=== PATIENT | male | born 1990 | race Caucasian/White ===

== ENCOUNTER → 2019-05-29 | Day surgery (SDC) | payer BC, OTHER ==
[~2019-05-29] MED LIST: Lactated Ringers 1,000 ML IV SCH; Propofol 200 MG/20 ML SDV IV ONE
--- NOTE | 2019-05-29 13:58 | OR ---
DATE OF OPERATION: 05/29/2019 PREOPERATIVE DIAGNOSIS: FAMILY HISTORY OF COLON CARCINOMA. POSTOPERATIVE DIAGNOSIS: FAMILY HISTORY OF COLON CARCINOMA. SURGEON: Angel Ramos MD PROCEDURE: FULL-LENGTH COLONOSCOPY WITH FORCEPS POLYP REMOVAL X1. ANESTHESIA: MAC. COMPLICATIONS: None. SPECIMEN: Small tubular adenoma in rectal vault, approximately 4 mm. FINDINGS: 1. Full-length colonoscopy. 2. Small sessile polyp in rectal vault. RECOMMENDATIONS: Followup colonoscopy in 5 years pending path report. INDICATIONS: The patient's mother at age 46 of colon cancer. This is his first colonoscopy, sent by Owen Manuel. DESCRIPTION OF PROCEDURE: The patient was prepped and draped, placed in the left lateral decubitus position. A lubricated Olympus colonoscope was inserted and easily advanced to the cecum. We were able to directly visualize the ileocecal valve and appendiceal orifice, intubate into the terminal ileum. Upon withdrawal, terminal ileum; right, transverse, and descending colons completely unremarkable. Throughout the left colon, I found no signs of any polyps, mass, ulceration, or bleeding sites. No vascular abnormalities or signs of colitis. In the proximal rectal vault, the patient had a small villous-appearing sessile polyp, approximately 3 to 4 mm, removed in its entirety with forceps biopsy x1. Did do a second biopsy just to ensure all margins. Retroflexion of scope in the rectum showed no perianal lesions. Air was suctioned and scope removed without complication. RONAN/FARZAD /[id number]
== END ==
LOC: CC.SDS 08:07
PROVIDERS: ATTEND Family Medicine
DX: Z12.11 Encounter for screening for malignant neoplasm of colon (principal); K62.1 Rectal polyp; Z80.0 Family history of malignant neoplasm of digestive organs
CPT/HCPCS: 45380; J2704; J7120

== ENCOUNTER 2020-01-30 19:50 | Emergency (ER) | payer OTHER ==
--- NOTE | 2020-01-30 20:05 | EDM.PDOC ---
ED HPI GENERAL MEDICAL PROBLEM - General Chief Complaint: Upper Extremity Injury/Pain Stated Complaint: left wrist pain Time Seen by Provider: 01/30/20 19:55 Source of Information: Reports: Patient History Limitations: Reports: No Limitations - History of Present Illness INITIAL COMMENTS - FREE TEXT/NARRATIVE: To the emergency department where he advised just prior to arrival he was playing softball and dove to catch the ball and he ended up hyperextending his left wrist and felt a pop he has pain to the wrist area he denies any hand pain he denies any proximal forearm pain he has no elbow pain no shoulder pain no neck or back pain has no numbness or tingling he denies any other symptoms. Onset: Today Duration: Other (Just prior to arrival) Location: Reports: Upper Extremity, Left (Left wrist) Quality: Reports: Ache Severity: Mild Improves with: Reports: None Worsens with: Reports: Movement Context: Reports: Other (Playing softball) Associated Symptoms: Reports: No Other Symptoms. Denies: Nausea/Vomiting, Weakness Treatments C++ QUANT DEVELOPER: Reports: Other (see below) (none) Left Wrist Pain Score (Numeric/FACES): 5 - Related Data Allergies Allergy/AdvReac Type Severity Reaction Status Date / Time No Known Allergies Allergy Verified 01/30/20 19:51 Home Meds: Home Meds . [No Known Home Meds] 05/28/19 [History] Past Medical History - Past Surgical History GI Surgical History: Reports: Appendectomy Social & Family History - Tobacco Use Smoking Status *Q: Unknown Ever Smoked Review of Systems - Review of Systems Review Of Systems: See Below Constitutional: Reports: No Symptoms Respiratory: Reports: No Symptoms Cardiovascular: Reports: No Symptoms GI/Abdominal: Reports: No Symptoms. Denies: Nausea, Vomiting Musculoskeletal: Reports: Joint Pain (Left wrist pain). Denies: Neck Pain, Back Pain Skin: Reports: No Symptoms. Denies: Bruising, Erythema Neurological: Reports: No Symptoms. Denies: Numbness, Tingling, Weakness Psychiatric: Reports: No Symptoms ED EXAM, GENERAL - Physical Exam Exam: See Below Exam Limited By: No Limitations General Appearance: Alert, WD/WN, No Apparent Distress Head: Atraumatic, Normocephalic Neck: Normal Inspection, Supple, Non-Tender, Full Range of Motion Respiratory/Chest: No Respiratory Distress, Lungs Clear, Normal Breath Sounds, Chest Non-Tender Cardiovascular: Normal Peripheral Pulses, Regular Rate, Rhythm Peripheral Pulses: 2+: Radial (L), Radial (R) GI/Abdominal: Soft, Non-Tender Back Exam: Normal Inspection, Full Range of Motion Extremities: Normal Inspection, Normal Range of Motion, Normal Capillary Refill. No: Non-Tender (It is to the left wrist with palpation) Neurological: Alert, Oriented, Normal Cognition, Normal Gait, No Motor/Sensory Deficits Psychiatric: Normal Affect, Normal Mood Skin Exam: Warm, Dry, Intact, Normal Color ED TRAUMA EXTREMITY PROCEDURES - Splinting Left Upper Extremity Splint Site: Left wrist Pre-Procedure NV Status: Normal Post-Procedure NV Status: Normal Splint Material: Velcro Splint Design: Thumb Spica Applied & Form Fitted By: Provider Provider Post-Splint Application NV Check: NV Status Normal, Good Position Complications: Yes Course - Vital Signs Text/Narrative:: 1803 Patient was evaluated in the emergency department and x-ray of the left wrist is been ordered and x-rays on the way to image the patient 1818 x-ray of the wrist was obtained and does not show any acute fracture dislocation, the patient was placed in a thumb spica wrist splint, he was advised to follow Rice protocol, he is to wear the splint for 2 weeks, he is advised after about a week or so if he still has pain the skin and need to follow-up the family doctor for further evaluation and treatment and possible MRI and other evaluation as needed. The patient is also advised to alternate Tylenol Motrin as needed for any pain Last Recorded V/S: Last Vital Signs Temp 36.6 C 01/30/20 19:51 Pulse 109 H 01/30/20 19:51 Resp 20 01/30/20 19:51 BP 136/71 01/30/20 19:51 Pulse Ox 98 01/30/20 19:51 - Orders/Labs/Meds Orders: Active Orders 24 hr Category Date Time Status Wrist Comp Min 3V Lt [CR] Stat Exams 01/30/20 20:01 Taken Departure - Departure Time of Disposition: 20:20 Disposition: Home, Self-Care 01 Clinical Impression: Sports injury, Left wrist sprain - Discharge Information *PRESCRIPTION DRUG MONITORING PROGRAM REVIEWED*: Not Applicable *COPY OF PRESCRIPTION DRUG MONITORING REPORT IN PATIENT MARCELINA: Not Applicable Instructions: Wrist Sprain, Adult Referrals: PCP,None [Primary Care Provider] - Forms: ED Department Discharge Additional Instructions: Elevate your left wrist on 2 pillows Wear the splint as directed Ice off-and-on frequently for 2 days Follow-up with your family doctor for further evaluation and treatment if symptoms are not significantly improved in 5 days Return to the emergency department sooner if worse or any problems Alternate Tylenol and or Motrin as needed for pain Sepsis Event Note (ED) - Evaluation Sepsis Screening Result: No Definite Risk - Focused Exam Vital Signs: Vital Signs Temp Pulse Resp BP Pulse Ox 01/30/20 19:51 36.6 C 109 H 20 136/71 98 - Problem List & Annotations (1) Left wrist sprain SNOMED Code(s): 03507996 Code(s): S63.502A - UNSPECIFIED SPRAIN OF LEFT WRIST, INITIAL ENCOUNTER Status: Acute Priority: Medium Current Visit: Yes Qualifiers: Encounter type: initial encounter Qualified Code(s): S63.502A - Unspecified sprain of left wrist, initial encounter (2) Sports injury SNOMED Code(s): 085745434 Code(s): T14.90XA - INJURY, UNSPECIFIED, INITIAL ENCOUNTER Status: Acute Priority: Medium Current Visit: Yes - Problem List Review Problem List Initiated/Reviewed/Updated: Yes - My Orders Last 24 Hours: My Active Orders 01/30/20 20:01 Wrist Comp Min 3V Lt [CR] Stat - Assessment/Plan Last 24 Hours: My Active Orders 01/30/20 20:01 Wrist Comp Min 3V Lt [CR] Stat Plan: The patient's past medical history, past surgical history, past social history, past family medical history was reviewed see the nursing notes for details
== END 2020-01-30 20:27 | disposition home or self-care (01) ==
LOC: CC.ED 19:50
DX: S63.502A Unspecified sprain of left wrist, initial encounter (principal); Y93.64 Activity, baseball
CPT/HCPCS: 73110-LT; 99283-25